=== PATIENT | male | born 1950 | race Caucasian/White ===

== ENCOUNTER → 2019-08-27 14:35 | Outpatient (CLI) | payer SELFPAY ==
[2013-03-05 14:53] VITALS: BMI 31.3
[~2019-08-27 14:35] MED LIST: CLARITIN-D1 TAB.SR . PO; FLOMAX0.4 MG PO; KLOR-CON 1010 MEQ PO; METOPROLOL TAR100 MG PO; NORVASC10 MG PO; SULFAZINE EC500 MG PO; ZESTORETIC 20/11 TAB PO
== END | disposition home or self-care (01) ==
LOC: D.LABREF 14:35
PROVIDERS: ATTEND Orthopaedic Surgery
DX: M17.11 Unilateral primary osteoarthritis, right knee (principal)